=== PATIENT | female | born 1965 | race Caucasian/White ===

== ENCOUNTER 2024-09-27 12:56 | Emergency (ER) | payer BC ==
[~2024-09-27] VITALS: Ht 160 cm; Wt 70.9 kg
[2024-09-27 13:02] VITALS: TEMP 98.1
[2024-09-27 13:47] LABS: BASOPHILS % (AUTO) 0.1 % (0-1); EOSINOPHILS % (AUTO) 0.3 % (0-6); HEMATOCRIT 37.4 % (35.0-45.0); HEMOGLOBIN 13.1 g/dl (12.0-16.0); LYMPHOCYTES # (AUTO) 0.8 X10'3 (1.1-4.8); LYMPHOCYTES % (AUTO) 10.6 % (21-51); MEAN CORPUSCULAR HEMOGLOBIN 31.7 PG (27.0-31.0); MEAN CORPUSCULAR HGB CONC 34.9 g/dL (33.0-36.5); MEAN CORPUSCULAR VOLUME 90.9 FL (78-98); MEAN PLATELET VOLUME 7.7 FL (7.4-10.4); MONOCYTES # (AUTO) 0.6 X10'3 (0-0.9); MONOCYTES % (AUTO) 8.4 % (2-12); NEUTROPHILS # (AUTO) 5.9 X10'3 (1.8-7.7); NEUTROPHILS % (AUTO) 80.6 % (42-75); PLATELET COUNT 157 X10'3 (140-440); RED BLOOD COUNT 4.12 X10'6 (4.20-5.60); RED CELL DISTRIBUTION WIDTH 13.1 % (11.5-14.5); WHITE BLOOD COUNT 7.3 X10'3 (4.5-11.0)
[2024-09-27 13:51] LABS: ALANINE AMINOTRANSFERASE 68 U/L (12-78); ALBUMIN 3.2 G/DL (3.4-5.0); ALBUMIN/GLOBULIN RATIO 0.8 (1.1-1.5); ALKALINE PHOSPHATASE 121 IU/L (46-116); ANION GAP 7 (8-16); ASPARTATE AMINO TRANSFERASE 63 U/L (10-37); BILIRUBIN,TOTAL 0.6 MG/DL (0.1-1.0); BLOOD UREA NITROGEN 10 MG/DL (7-18); BUN/CREATININE RATIO 11.4 (10.0-20.0); CALCIUM 8.1 MG/DL (8.5-10.1); CHLORIDE 98 MMOL/L (99-107); CREATININE 0.88 MG/DL (0.40-0.90); GLUCOSE 111 MG/DL (70-104); POTASSIUM 3.5 MMOL/L (3.5-5.1); SODIUM 130 MMOL/L (135-145); TOTAL CARBON DIOXIDE 25.1 MMOL/L (24-32); TOTAL PROTEIN 7.1 G/DL (6.4-8.2); eCRCL 56 ML/MIN; eGFR 66 ML/MIN
[2024-09-27 13:59] LABS: PRO BRAIN NATRIURETIC PEPTIDE 1519 PG/ML (0-125)
[2024-09-27] MEDS ORDERED: iohexol 350MG/ML 100ml bottle IV ONE (15:48)
[2024-09-27] MEDS ORDERED: AZIT250T13 PO (16:34)
[2024-09-27] MEDS ORDERED: AMOX-580 PO (16:34)
[2024-09-27 16:51] VITALS: BP 139/76; PULSE 79; RESP 18; O2SAT 99
== END 2024-09-27 16:54 | disposition home or self-care (01) ==
LOC: ER 12:57
DX: J18.1 Lobar pneumonia, unspecified organism (principal); R00.2 Palpitations; I47.9 Paroxysmal tachycardia, unspecified; R01.1 Cardiac murmur, unspecified; R91.8 Other nonspecific abnormal finding of lung field; R11.2 Nausea with vomiting, unspecified; Z91.041 Radiographic dye allergy status
CPT/HCPCS: 36415; 71045; 71275; 80053; 83880; 84484; 85025; 93005; 99285; Q9967